=== PATIENT | female | born 1980 | race Caucasian/White ===

== ENCOUNTER 2016-06-03 12:01 | Emergency (ER) | payer BC ==
[~2016-06-03] VITALS: Ht 157.5 cm; Wt 84.0 kg
[2016-06-03 14:10] LABS: HEMATOCRIT 41.2 % (36.0-46.0); MCH 28.6 PG (29.0-34.0); MCHC 33.3 G/DL (30.0-36.0); PLATELET COUNT 251 K/uL (156-360); RBC DIS.WIDTH-CV 13.1 % (11.8-14.6); RBC DIS.WIDTH-SD 40.6 % (39-53); RED BLOOD COUNT 4.79 M/uL (3.80-5.20)
[2016-06-03 14:16] LABS: ADD MIUA? YES; BILIRUBIN NEGATIVE; BLOOD SMALL; COLOR YELLOW ((YELLOW)); GLUCOSE (STRIP) NEGATIVE; KETONES NEGATIVE; LEUKOCYTES TRACE; NITRITE NEGATIVE; PROTEIN (STRIP) NEGATIVE; SPECIFIC GRAVITY 1.012 (1.000-1.030); UROBILINOGEN 0.2 MG/DL (0.2-1.0)
[2016-06-03 14:18] LABS: CHLORIDE 104 mEq/L (99-109)
[2016-06-03 14:18] LABS: BACTERIA RARE /HPF; EPITHELIAL CELLS RARE /HPF; MUCUS TRACE /LPF; RED BLOOD CELLS 0-5 /HPF (0-5); WHITE BLOOD CELLS 0-5 /HPF (0-5)
[2016-06-03 14:19] LABS: POTASSIUM 4.2 mEq/L (3.7-5.4); SODIUM 138 mEq/L (136-147)
[2016-06-03 14:20] LABS: D-DIMER ELISA 0.36 mg/L FEU (< 0.57); GLUCOSE 99 mg/dL (70-99)
[2016-06-03 14:22] LABS: ANION GAP 9 MEQ/L (2-14)
[2016-06-03 14:24] LABS: GFR ESTIMATE (CALCULATED) > 59 mL/min/
[2016-06-03 14:25] LABS: UREA NITROGEN (BUN) 9 mg/dL (9-23)
[2016-06-03 14:32] LABS: QUANTITATIVE HCG < 4.0 MIU/ML
[2016-06-03] MEDS ORDERED: FIORICET 50-301 EACH PO (15:08)
[2016-06-03] MEDS ORDERED: ANTIVERT25 MG PO (15:08)
[2016-06-03] MEDS ORDERED: REGLAN10 MG PO (15:08)
[2016-06-03 15:28] VITALS: BP 127/70
== END 2016-06-03 15:31 | disposition home or self-care (01) ==
LOC: EME 12:01
PROVIDERS: Physician Assistant
DX: R51 Headache (principal); R42 Dizziness and giddiness; R55 Syncope and collapse; R11.0 Nausea; K21.9 Gastro-esophageal reflux disease without esophagitis; M79.7 Fibromyalgia; Z87.891 Personal history of nicotine dependence
CPT/HCPCS: 70450; 80048; 81003; 84702; 85027; 85379; 99281; 99284

== ENCOUNTER 2016-08-12 17:50 | Emergency (ER) | payer BC ==
[~2016-08-12] VITALS: Ht 157.5 cm; Wt 84.0 kg
[~2016-08-12 17:50] MED LIST: ANTIVERT25 MG PO; BACTRIM,SEPT1 TABLET PO; DULOXETINE HCL60 MG PO; FIORICET 50-301 EACH PO; MOTRIN600 MG PO; REGLAN10 MG PO; TRAMADOL HCL50 MG PO; ZOFRAN ODT4 MG PO
[2016-08-12 19:41] LABS: HEMATOCRIT 45.3 % (36.0-46.0); MCH 28.6 PG (29.0-34.0); MCHC 32.7 G/DL (30.0-36.0); MCV 87.5 FL (83-99); MEAN PLAT.VOLUME 11.2 uM^3 (9.5-12.4); PLATELET COUNT 239 K/uL (156-360); RBC DIS.WIDTH-CV 13.6 % (11.8-14.6); RBC DIS.WIDTH-SD 43.5 % (39-53); RED BLOOD COUNT 5.18 M/uL (3.80-5.20); WHITE BLOOD COUNT 10.3 K/uL (4.1-10.2)
[2016-08-12 19:55] LABS: CHLORIDE 105 mEq/L (99-109); POTASSIUM 4.3 mEq/L (3.7-5.4); SODIUM 138 mEq/L (136-147)
[2016-08-12 19:58] LABS: GLUCOSE 107 mg/dL (70-99)
[2016-08-12 19:59] LABS: ANION GAP 9 MEQ/L (2-14)
[2016-08-12 20:00] LABS: TOTAL BILIRUBIN 0.2 mg/dL (0.0-1.0)
[2016-08-12 20:01] LABS: ALKALINE PHOSPHATASE 93 IU/L (3-129); GFR ESTIMATE (CALCULATED) > 59 mL/min/
[2016-08-12 20:02] LABS: UREA NITROGEN (BUN) 15 mg/dL (9-23)
[2016-08-12 20:05] LABS: LIPASE 38 U/L (1.0-51.0)
[2016-08-12 20:14] LABS: QUANTITATIVE HCG < 4.0 MIU/ML
[2016-08-12 20:55] VITALS: BP 109/86
== END 2016-08-12 22:28 | disposition left against medical advice (07) ==
LOC: EME 17:50
DX: R10.32 Left lower quadrant pain (principal); R11.2 Nausea with vomiting, unspecified; Z88.1 Allergy status to other antibiotic agents
CPT/HCPCS: 74176; 80053; 81003; 83690; 84702; 85027; 99281; 99284